=== PATIENT | female | born 1955 | race African-American/Black ===

== ENCOUNTER 2018-02-17 19:07 | Emergency (ER) | payer OTHER, BC ==
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
[2018-02-17] MEDS ORDERED: HYDROCODONE/ACETAMINOPHEN 5-325 MG (6 TAB/ER DISP) PO PRN (21:25)
[2018-02-17 21:48] VITALS: BP 168/87
--- NOTE | 2018-02-18 03:05 | EKG REPORT ---
SEVERITY:- NORMAL ECG - SINUS RHYTHM : Confirmed by: Dominique Campos MD 18-Feb-2018 03:04:28
== END 2018-02-17 21:47 | disposition home or self-care (01) ==
LOC: ER 19:07
DX: T14.8XXA Other injury of unspecified body region, initial encounter (principal); R07.89 Other chest pain; V49.9XXA Car occupant (driver) (passenger) injured in unspecified traffic accident, initial encounter; I10 Essential (primary) hypertension
CPT/HCPCS: 71046; 93005; 93010; 99284

== ENCOUNTER 2018-08-18 18:53 | Emergency (ER) | payer BC, OTHER ==
--- NOTE | 2018-08-18 19:32 | ER Document Report ---
ED Medical Screen (RME) - General Chief Complaint: High Blood Pressure Stated Complaint: BLOOD PRESSURE ISSUE Time Seen by Provider: 08/18/18 19:25 Primary Care Provider: SYDNI ESCOBEDO MD [Primary Care Provider] - Follow up as needed Notes: This 63-year-old female patient comes emergency room for elevated blood pressure and left anterior chest pressure discomfort. The chest pressure discomfort started 2-3 days ago. This prompted her to get a blood pressure cuff and she found that her blood pressure was elevated. Today she decided to go to an urgent care for this. She took 2 baby aspirin prior to going to the urgent care. At the urgent care her blood pressure was 196/114 she is given clonidine 0.2 mg and 2 additional baby aspirin. The patient was unaware if she had a prior history of high blood pressure. Review of records here shows one visit in January 2018 where her blood pressure was quite elevated, so this elevated blood pressure is not likely a new problem. He does need to be evaluated for the left upper anterior chest pressure discomfort. I have greeted and performed a rapid initial assessment of this patient. A comprehensive ED assessment and evaluation of the patient, analysis of test r esults and completion of the medical decision making process will be conducted by additional ED providers. TRAVEL OUTSIDE OF THE [place] IN LAST 30 DAYS: No - Related Data Allergies/Adverse Reactions: iodine Allergy (Verified 02/17/18 19:09) Past Medical History - Social History Chew tobacco use (# tins/day): No Frequency of alcohol use: None Drug Abuse: None - Past Medical History Cardiac Medical History: Reports: Hx Hypertension Renal/ Medical History: Denies: Hx Peritoneal Dialysis Physical Exam - Vital signs Vitals: Temp Pulse Resp BP Pulse Ox 97.5 F 93 14 167/91 H 97 08/18/18 19:01 08/18/18 19:01 08/18/18 19:01 08/18/18 19:01 08/18/18 19:01 Course - Vital Signs Vital signs: Temp Pulse Resp BP Pulse Ox 97.5 F 93 14 167/91 H 97 08/18/18 19:01 08/18/18 19:01 08/18/18 19:01 08/18/18 19:01 08/18/18 19:01 Doctor's Discharge - Discharge Referrals: SYDNI ESCOBEDO MD [Primary Care Provider] - Follow up as needed
[2018-08-18 19:45] LABS: ABSOLUTE BASOPHILS # (AUTO) 0.1 10^3/uL (0.0-0.2); ABSOLUTE EOSINOPHILS # (AUTO) 0.3 10^3/uL (0.0-0.6); ABSOLUTE LYMPHOCYTES (AUTO) 2.1 10^3/uL (0.5-4.7); ABSOLUTE MONOCYTES (AUTO) 0.4 10^3/uL (0.1-1.4); ABSOLUTE NEUT (AUTO) 2.7 10^3/uL (1.7-8.2); BASOPHILS % (AUTO) 1.2 % (0-2); EOSINOPHILS % (AUTO) 4.6 % (0-6); HEMATOCRIT 41.2 % (36.0-47.0); HEMOGLOBIN 13.6 g/dL (12.0-15.5); LYMPHOCYTES % (AUTO) 38.5 % (13-45); MEAN CORPUSCULAR HEMOGLOBIN 26.3 pg (27.0-33.4); MEAN CORPUSCULAR VOLUME 80 fl (80-97); PLATELET COUNT 291 10^3/uL (150-450); RED BLOOD COUNT 5.16 10^6/uL (3.72-5.28); RED CELL DISTRIBUTION WIDTH 15.4 % (11.5-14.0); SEGMENTED NEUTROPHILS % (AUTO) 48.7 % (42-78); TOTAL CELLS COUNTED % (AUTO) 100 %; WHITE BLOOD COUNT 5.5 10^3/uL (4.0-10.5)
--- NOTE | 2018-08-18 19:54 | RADIOLOGY REPORT (SQ) ---
EXAM DESCRIPTION: CHEST 2 VIEWS COMPLETED DATE/TIME: 08/18/2018 7:45 pm REASON FOR STUDY: chest pain COMPARISON: Chest x-ray 02/17/2018. EXAM PARAMETERS: NUMBER OF VIEWS: two views TECHNIQUE: Digital Frontal and Lateral radiographic views of the chest acquired. RADIATION DOSE: NA LIMITATIONS: none FINDINGS: LUNGS AND PLEURA: There is linear atelectasis/scarring at the left lung base. No consolid ation, pleural effusion or pneumothorax. MEDIASTINUM AND HILAR STRUCTURES: No masses or contour abnormalities. HEART AND VASCULAR STRUCTURES: Heart normal size. No evidence for failure. BONES: No acute findings. HARDWARE: None in the chest. IMPRESSION: Linear atelectasis/scarring at the left lung base. Otherwise, no acute radiographic fin ding in the chest. TECHNICAL DOCUMENTATION: JOB ID: [id number] 2010 [employer]- All Rights Reserved Reading location - IP/workstation name: [email or web address]
[2018-08-18 20:11] LABS: ALANINE AMINOTRANSFERASE 24 U/L (9-52); ALBUMIN 4.8 g/dL (3.5-5.0); ALKALINE PHOSPHATASE 85 U/L (38-126); ANION GAP 6 (5-19); ASPARTATE AMINO TRANSFERASE 19 U/L (14-36); BILIRUBIN,DIRECT 0.1 mg/dL (0.0-0.4); BILIRUBIN,TOTAL 0.4 mg/dL (0.2-1.3); BLOOD UREA NITROGEN 13 mg/dL (7-20); CALCIUM 10.1 mg/dL (8.4-10.2); CARBON DIOXIDE 32 mmol/L (22-30); CHLORIDE 103 mmol/L (98-107); CREATINE KINASE 94 U/L (30-135); GLUCOSE 102 mg/dL (75-110); POTASSIUM 4.1 mmol/L (3.6-5.0); SODIUM 140.9 mmol/L (137-145); TOTAL PROTEIN 7.6 g/dL (6.3-8.2)
[2018-08-18 20:22] LABS: CREATINE KINASE MB 0.44 ng/mL (<4.55)
[2018-08-18 20:37] LABS: TROPONIN I < 0.012 ng/mL
--- NOTE | 2018-08-18 21:19 | ER Document Report ---
ED Blood Pressure Problem - General Chief Complaint: High Blood Pressure Stated Complaint: BLOOD PRESSURE ISSUE Time Seen by Provider: 08/18/18 19:25 Primary Care Provider: SYDNI ESCOBEDO MD [Primary Care Provider] - Follow up as needed Mode of Arrival: Ambulatory Information source: Patient TRAVEL OUTSIDE OF THE [place] IN LAST 30 DAYS: No - HPI Patient complains to provider of: High blood pressure Onset: Other - 63-year-old that presents for evaluation of high blood pressure. She is had high blood pressure measured in the past at [facility] and then has been checking her blood pressure between 6 and 7 times a day for the last 2 weeks and today said she felt some heaviness in the chest making her want to go to the urgent care at which time they told her to come the emergency room. She denies any nausea, diaphoresis, shortness of breath, previous history of RI, abdominal pain, diarrhea constipation dysuria or rashes. - Related Data Allergies/Adverse Reactions: iodine Allergy (Verified 08/18/18 20:29) mercury (elemental) Allergy (Verified 08/18/18 20:29) Past Medical History - General Information source: Patient - Social History Smoking Status: Never Smoker Chew tobacco use (# tins/day): No Frequency of alcohol use: None Drug Abuse: None Family History: Reviewed & Not Pertinent Patient has suicidal ideation: No Patient has homicidal ideation: No - Past Medical History Cardiac Medical History: Reports: Hx Hypertension Renal/ Medical History: Denies: Hx Peritoneal Dialysis Review of Systems - Review of Systems -: Yes All other systems reviewed and negative Physical Exam - Vital signs Vitals: Temp Pulse Resp BP Pulse Ox 97.5 F 93 14 167/91 H 97 08/18/18 19:01 08/18/18 19:01 08/18/18 19:01 08/18/18 19:01 08/18/18 19:01 Interpretation: Hypertensive - General General appearance: Appears well, Alert - HEENT Head: Normocephalic, Atraumatic Eyes: Normal Pupils: PERRL - Respiratory Respiratory status: No respiratory distress Chest status: Nontender Breath sounds: Normal Chest palpation: Normal - Cardiovascular Rhythm: Regular Heart sounds: Normal auscultation Murmur: No - Abdominal Inspection: Normal Distension: No distension Bowel sounds: Normal Tenderness: Nontender Organomegaly: No organomegaly - Back Back: Normal, Nontender - Extremities General upper extremity: Normal inspection, Nontender, Normal color, Normal ROM, Normal temperature General lower extremity: Normal inspection, Nontender, Normal color, Normal ROM, Normal temperature, Normal weight bearing. No: Belkis's sign - Neurological Neuro grossly intact: Yes Cognition: Normal Orientation: AAOx4 Melinda Coma Scale Eye Opening: Spontaneous Melinda Coma Scale Verbal: Oriented Sterling Coma Scale Motor: Obeys Commands Sterling Coma Scale Total: 15 Speech: Normal Motor strength normal: LUE, RUE, LLE, RLE Sensory: Normal - Psychological Associated symptoms: Normal affect, Normal mood - Skin Skin Temperature: Warm Skin Moisture: Dry Skin Color: Normal Course - Re-evaluation Re-evalutation: 08/18/18 21:16 Here is a 63-year-old female that presents for evaluation of hypertension. She has vague other symptoms but nothing specific all of which have been self- limited and short without any exacerbating factors. I believe this patient likely is experiencing some anxiety related to her high blood pressure. Patient with 2- troponins in emergency department chest pain-free, had a normal EKG prior to arrival while at the urgent care which is reassuring. Her blood pressure without any intervention in the emergency department improved to 130s systolic. She will be started on a low dose of lisinopril and encouraged follow-up with her primary physician this week. She does not demonstrate any other serious underlying causes of her elevated high blood pressure such as but not limited to renal failure, thrombo-cytosis or otherwise. - Vital Signs Vital signs: Temp Pulse Resp BP Pulse Ox 97.5 F 64 18 130/85 H 99 08/18/18 21:48 08/18/18 22:55 08/18/18 22:55 08/18/18 22:55 08/18/18 22:55 - Laboratory Result Diagrams: 08/18/18 19:34 08/18/18 19:34 Laboratory results interpreted by me: 08/18/18 08/18/18 19:34 19:34 MCH 26.3 L RDW 15.4 H Carbon Dioxide 32 H Discharge - Discharge Clinical Impression: Chest pressure Hypertension Qualifiers: Hypertension type: unspecified Qualified Code(s): I10 - Essential (primary) hypertension Condition: Good Disposition: HOME, SELF-CARE Instructions: Angiotensin Converting Enzyme Inhibitor Medication ([facility]), Clonidine (Catapres) ([facility]), High Blood Pressure, Requiring Treatment ([facility]) Additional Instructions: You were seen today in the emergency department for your high blood pressure. You had blood tests, a physical exam and monitoring. I think that you likely have high blood pressure chronically, you should start taking the medication prescribed to you daily called lisinopril. You need to get a blood pressure recheck this week at your doctor's office. Case you have any worsening chest pain, lightheadedness, or other symptoms please return to the emergency room as it could be a more serious condition. Prescriptions: Lisinopril [Prinivil] 5 mg PO DAILY #30 tablet Forms: Elevated Blood Pressure Referrals: SYDNI ESCOBEDO MD [Primary Care Provider] - Follow up as needed
[2018-08-18] MEDS ORDERED: LISINOPRIL 5 MG TABLET PO ONE (21:46)
[2018-08-18] MEDS ORDERED: CLONIDINE HCL 0.1 MG TABLET PO ONE (21:46)
[2018-08-18 22:56] VITALS: BP 130/85
== END 2018-08-18 23:11 | disposition home or self-care (01) ==
LOC: ER 18:53
DX: I10 Essential (primary) hypertension (principal); R07.89 Other chest pain
CPT/HCPCS: 36415; 71046; 80053; 82550; 82553; 84484; 85025; 99283